=== PATIENT | female | born 1955 | race African-American/Black ===

== ENCOUNTER 2017-03-06 08:53 | Emergency (ER) | payer MEDICARE, OTHER ==
--- NOTE | ~2017-03-06 | CR181 ---
[facility] A Service of [facility] & [facility] RADIOLOGY TEXT RESULTS PATIENT: ANDREA VARGAS LOCATION: [facility] : 51 UNIT #: [id number] AGE: [address]: Ayden Maza DO SEX: F ORDER DR: [id number] [facility] [address] [place], [place] [address] [id number] E MR#: [id number] Acc #: [id number] NAME: ANDREA VARGAS : 1955 SEX: F STUDY DATE/TIME: 03/06/2017 11:50 UNIT: [facility] ROOM: STUDY DESCRIPTION: CR Lumbar Spine 2 or 3 Views Attending Physician: Ayden Maza D.O. Ordering Physician: Ayden Maza D.O. Primary Care Physician: Stewart Fabian M.D. MEDICAL IMAGING REPORT This report is preliminary unless electronic signature is present EXAM Lumbar spine 3 views INDICATION Low back pain after falling February 28. Correlated with CT of the abdomen and pelvis from same day. FINDINGS Vertebral body heights are maintained. Minimal grade 1 anterolisthesis of L4 on L5. Mild multilevel degenerative disc space narrowing. Lower lumbar spine facet arthropathy. Residual contrast in the renal collecting system and bladder. IMPRESSION No acute lumbar spine finding. Dictated by... Rory Berger M.D. THIS IS AN ELECTRONICALLY VERIFIED REPORT Rory Berger M.D. at 03/07/2017 7:29 AM DUDLEY/latisha TD: 03/06/2017 16:27 JOB #: [id number] MEDICAL IMAGING REPORT Page 1 of 1 COPY
--- NOTE | ~2017-03-06 | CR263 ---
[facility] A Service of [facility] & [facility] / [facility] RADIOLOGY TEXT RESULTS PATIENT: ANDREA VARGAS LOCATION: [facility] : 53 UNIT #: [id number] AGE: [address]: Ayden Maza DO SEX: F ORDER DR: [id number] [facility] [address] [place], [place] [address] [id number] E MR#: [id number] Acc #: [id number] NAME: ANDREA VARGAS : 1955 SEX: F STUDY DATE/TIME: 03/06/2017 11:59 UNIT: [facility] ROOM: STUDY DESCRIPTION: CR Toe 2 Views Great Rt Attending Physician: Ayden Maza D.O. Ordering Physician: Ayden Maza D.O. Primary Care Physician: Stewart Fabian M.D. MEDICAL IMAGING REPORT This report is preliminary unless electronic signature is present EXAM Right great toe 3 views INDICATIONS Great toe pain since February 27. COMPARISON STUDIES No comparisons. FINDINGS There is a comminuted nondisplaced fracture of the proximal phalanx of the great toe. No evidence for dislocation. IMPRESSION Comminuted nondisplaced fracture of the proximal phalanx of the great toe. Dictated by... Rory Berger M.D. THIS IS AN ELECTRONICALLY VERIFIED REPORT Rory Berger M.D. at 03/07/2017 7:29 AM DUDLEY/loy TD: 03/06/2017 16:33 JOB #: [id number] MEDICAL IMAGING REPORT Page 1 of 1 COPY
--- NOTE | ~2017-03-06 | CR63 ---
[facility] A Service of [facility] & [facility] RADIOLOGY TEXT RESULTS PATIENT: ANDREA VARGAS LOCATION: [facility] : 53 UNIT #: [id number] AGE: [address]: Ayden Maza DO SEX: F ORDER DR: [id number] [facility] [address] [place], [place] [address] [id number] E MR#: [id number] Acc #: [id number] NAME: ANDREA VARGAS : 1955 SEX: F STUDY DATE/TIME: 03/06/2017 11:49 UNIT: [facility] ROOM: STUDY DESCRIPTION: CR Chest 2 View Attending Physician: Ayden Maza D.O. Ordering Physician: Ayden Maza D.O. Primary Care Physician: Setwart Fabian M.D. MEDICAL IMAGING REPORT This report is preliminary unless electronic signature is present EXAM PA and lateral chest. INDICATION Left sided rib pain since February 28. COMPARISON No comparison studies are available. FINDINGS The lungs are well expanded. No airspace consolidation. Heart size normal. Atherosclerotic calcification of the aorta. Degenerative change thoracic spine. IMPRESSION No active disease. Dictated by... Rory Berger M.D. THIS IS AN ELECTRONICALLY VERIFIED REPORT Rory Berger M.D. at 03/07/2017 7:29 AM DUDLEY/charles TD: 03/06/2017 16:32 JOB #: [id number] MEDICAL IMAGING REPORT Page 1 of 1 COPY
--- NOTE | ~2017-03-06 | CT52 ---
[facility] A Service of [facility] RADIOLOGY TEXT RESULTS PATIENT: ANDREA VARGAS LOCATION: [facility] : 51 UNIT #: [id number] AGE: [address]: Ayden Maza DO SEX: F ORDER DR: [id number] [facility] [address] [place], [place] [address] [id number] E MR#: [id number] Acc #: [id number] NAME: ANDREA VARGAS : 1955 SEX: F STUDY DATE/TIME: 03/06/2017 UNIT: [facility] ROOM: STUDY DESCRIPTION: CT Cervical Spine Wo Cont Attending Physician: Ayden Maza D.O. Ordering Physician: Ayden Maza D.O. Primary Care Physician: Stewart Fabian M.D. MEDICAL IMAGING REPORT This report is preliminary unless electronic signature is present EXAM CT cervical spine without contrast 03/06/2017 1040 hours HISTORY Patient lost balance and fell on 03/01/2017, hitting head on table. Patient complains of headache and neck pain for 5 days. COMPARISON None. TECHNIQUE Thin-cut axial images were obtained from the skull base to the upper thoracic spine without contrast. Sagittal and coronal reconstructions were performed. Total exam DLP 284 mGy/cm. This CT exam was performed with one or more of the following radiation dose reduction techniques: automatic exposure control, adjustment of mA and/or kV according to patient size, and iterative reconstruction. FINDINGS Limited views through the posterior fossa are negative. The skull base and mastoid air cells are normal. C1-C2 articulation demonstrates some spurring around the dens. There is no fracture. C2-C3 is normal. C3-C4 demonstrates uncovertebral spurring and broad-based central disc bulging without significant central canal or foraminal stenosis. C4-C5 demonstrates disc height loss and uncovertebral spurring. There is no central canal or foraminal stenosis. [facility] A Service of [facility] RADIOLOGY TEXT RESULTS PATIENT: ANDREA VARGAS LOCATION: [facility] : 53 UNIT #: [id number] AGE: [address]: Adyen Maza DO SEX: F ORDER DR: C5-C6 demonstrates disc height loss, endplate spurring, uncovertebral spurring and broad-based disc bulging resulting in mild central canal stenosis but no fracture or subluxation. C6-C7 demonstrates disc height loss, central disc osteophyte complex without significant central canal or foraminal stenosis. C7-T1 is negative. IMPRESSION There is degenerative change, greatest at C5-C6 and C6-C7 with disc height loss, uncovertebral and endplate spurring. There is mild broad-based central disc bulge at C3-C4. There is no definite fracture or subluxation. Dictated by... Ángela Deluna M.D. THIS IS AN ELECTRONICALLY VERIFIED REPORT Ángela Deluna M.D. at 03/07/2017 9:29 AM DIOGENES/trinity TD: 03/06/2017 16:08 JOB #: [id number] MEDICAL IMAGING REPORT Page 1 of 1 COPY
--- NOTE | ~2017-03-06 | CT2 ---
[facility] A Service of [facility] & [facility] RADIOLOGY TEXT RESULTS PATIENT: ANDREA VARGAS LOCATION: [facility] : 51 UNIT #: [id number] AGE: [address]: Ayden Maza DO SEX: F ORDER DR: [id number] [facility] [address] [place], [place] [address] [id number] E MR#: [id number] Acc #: [id number] NAME: ANDREA VARGAS : 1955 SEX: F STUDY DATE/TIME: 03/06/2017 10:44 UNIT: [facility] ROOM: STUDY DESCRIPTION: CT Abd and Pelv W Cont Attending Physician: Ayden Maza D.O. Ordering Physician: Ayden Maza D.O. Primary Care Physician: Stewart Fabian M.D. MEDICAL IMAGING REPORT This report is preliminary unless electronic signature is present EXAM CT abdomen and pelvis with contrast, 03/06/2017, 1044 hours. CLINICAL HISTORY Patient lost balance and fell on 03/01/2017 with head and neck pain, diffuse body pain. Abdominal pain in the left side for [address] angiogram of the abdomen and pelvis, 12/09/2010. TECHNIQUE Dynamic helical CT images were obtained from the lung bases through the pubic symphysis with intravenous contrast only. Sagittal and coronal reconstructions were performed. Contrast was Isovue-370 100 mL IV. Total exam DLP 1092 mGy-cm. This CT exam was performed with one or more of the following radiation dose reduction techniques: automatic exposure control, adjustment of mA and/or kV according to patient size, and iterative reconstruction. FINDINGS Images through the lung bases are clear. There are no nodules or effusions. The esophagus is normal. Postcontrast images through the abdomen demonstrate a normal appearance to the liver, spleen, pancreas, and bile ducts. The gallbladder is absent. The adrenal glands are normal. The kidneys enhance normally. There is a tiny cyst in the lateral lower pole left kidney, unchanged. There are no renal or ureteral calculi. The abdominal aorta is normal in caliber. The unopacified stomach is contracted. There is no wall thickening seen. The small bowel is unremarkable. The terminal ileum and cecum are normal. The appendix is surgically absent. There is no colonic distension or STS. [facility] A Service of [facility] & [facility] RADIOLOGY TEXT RESULTS PATIENT: ANDREA VARGAS LOCATION: [facility] : 53 UNIT #: [id number] AGE: [address]: Ayden Maza DO SEX: F ORDER DR: colonic wall thickening. The CT pelvis demonstrates a normal appearance to the bladder. The uterus is surgically absent. There are pelvic phleboliths present. There is no hernia seen. Lumbar spine is unremarkable. IMPRESSION Negative CT scan of the abdomen and pelvis performed with intravenous contrast. Dictated by... Ángela Deluna M.D. THIS IS AN ELECTRONICALLY VERIFIED REPORT Ángela Deluna M.D. at 03/07/2017 9:29 AM DIOGENES/charles TD: 03/06/2017 15:53 JOB #: [id number] MEDICAL IMAGING REPORT Page 1 of 1 COPY
--- NOTE | ~2017-03-06 | CT71 ---
[facility] A Service [facility][1] RADIOLOGY TEXT RESULTS PATIENT: ANDREA VARGAS LOCATION: [facility] : 51 UNIT #: [id number] AGE: [address]: Ayden Maza DO SEX: F ORDER DR: [id number] [facility] [address] [place], [place] [address] [id number] E MR#: [id number] Acc #: [id number] NAME: ANDREA VARGAS : 1955 SEX: F STUDY DATE/TIME: 03/06/2017 10:42 UNIT: [facility] ROOM: STUDY DESCRIPTION: CT Head Wo Contrast Attending Physician: Ayden Maza D.O. Ordering Physician: Ayden Maza D.O. Primary Care Physician: Stewart Fabian M.D. MEDICAL IMAGING REPORT This report is preliminary unless electronic signature is present EXAM CT head without contrast, 03/06/2017. HISTORY 61-year-old female with headache, status post fall 03/01/2017, after hitting head on table. COMPARISON None TECHNIQUE Routine unenhanced axial images performed through the brain. This CT exam was performed with one or more of the following radiation dose reduction techniques: automatic exposure control, adjustment of mA and/or kV according to patient size, and iterative reconstruction. FINDINGS No hemorrhage, acute infarction, mass lesion, or abnormal extraaxial fluid collection. No midline shift or focal mass effect. Ventricular system is normal in size and configuration. Mild generalized atrophy. No acute bony abnormality. Visualized paranasal sinuses and mastoid air cells are clear. IMPRESSION 1. No acute intracranial abnormality. 2. Mild generalized age-related atrophy. Dictated by... Virgil Garnica M.D. [facility] A Service [facility][1] RADIOLOGY TEXT RESULTS PATIENT: ANDREA VARGAS LOCATION: [facility] : 51 UNIT #: [id number] AGE: [address]: Ayden Maza DO SEX: F ORDER DR: THIS IS AN ELECTRONICALLY VERIFIED REPORT Virgil Garnica M.D. at 03/08/2017 10:41 AM Celeste TD: 03/06/2017 16:11 JOB #: [id number] MEDICAL IMAGING REPORT Page 1 of 1 COPY
[~2017-03-06 08:53] MED LIST: AMITRYPTYLINE PO; HCTZ; HYDROCODONE; MULTIVITAMIN1 UDCAP PO; SYNTHROID; TOPROL XL
[2017-03-06 09:57] LABS: PARTIAL THROMBOPLASTIN TIME 26.9 SECONDS (23.5-31.3); PROTHROMBIN TIME (PATIENT) 10.4 SECONDS (10.0-11.7)
[2017-03-06 09:58] LABS: BASOPHIL% 0.7 % (0-2.5); EOSINOPHIL# 0.1 X10e3 (0-0.7); EOSINOPHIL% 1.7 % (0.0-7.0); HEMATOCRIT 44.9 % (35.0-45.0); HEMOGLOBIN 14.8 gm/dL (12.0-16.0); LYMPHOCYTE% 51.2 % (17.0-45.0); MEAN CORPUSCULAR HEMOGLOBIN 28.6 PG (28-34); MEAN CORPUSCULAR HGB CONC 32.9 g/dL (30-36); MEAN PLATELET VOLUME 10.3 FL (6.5-11.5); MONOCYTE# 0.4 X10e3 (0-1.0); NEUTROPHIL# 2.3 X10e3 (1.5-7.1); NEUTROPHIL% 39.4 % (40-75); RED BLOOD COUNT 5.16 X10e (3.90-5.30); RED CELL DISTRIBUTION WIDTH 14.9 % (11.0-15.5); WHITE BLOOD COUNT 5.9 X10e3 (4.0-10.5)
[2017-03-06 10:14] LABS: URINE SOURCE CLEAN CATCH
[2017-03-06 10:21] LABS: ALBUMIN SERUM 4.6 g/dL (3.5-5.0); BILIRUBIN, DIRECT 0.1 mg/dL (0.0-0.2); BILIRUBIN,INDIRECT 0.5 mg/dL (0.0-0.9); BILIRUBIN,TOTAL 0.6 mg/dL (0.2-2.0); BUN/CREATININE RATIO 18.88; CALCIUM SERUM 9.7 mg/dL (8.4-10.2); CREATININE SERUM 0.9 mg/dL (0.6-1.4); GLOM FILT RATE Estimated 78.9 mL/min (>60); PROTEIN TOTAL SERUM 8.5 g/dL (6.0-8.3)
[2017-03-06 10:22] LABS: URINE APPEARANCE CLEAR; URINE BILIRUBIN NEG (NEG); URINE BLOOD NEG (NEG); URINE COLOR YELLOW; URINE GLUCOSE NEG (NEG); URINE KETONE NEG (NEG); URINE LEUKOCYTE ESTERASE NEG (NEG); URINE NITRATE NEG (NEG); URINE PH 5.5 (5-8); URINE PROTEIN NEG (NEG); URINE SPECIFIC GRAVITY 1.009 (1.003-1.035); URINE UROBILINOGEN 0.2 MG/DL (NEG)
[2017-03-06 10:34] LABS: CULTURE INDICATED? NO
[2017-03-06 11:41] LABS: DIFF IND YES; PLATELET COUNT 167 X10e3 (140-420)
[2017-03-06 11:55] LABS: PLATELET ESTIMATE NORMAL (NORMAL)
[2017-03-06 11:56] LABS: ANISOCYTOSIS SL
== END 2017-03-06 13:38 | disposition home or self-care (01) ==
LOC: CED 08:53
PROVIDERS: Emergency Medicine
DX: S09.90XA Unspecified injury of head, initial encounter (principal); S92.414A Nondisplaced fracture of proximal phalanx of right great toe, initial encounter for closed fracture; R10.9 Unspecified abdominal pain; I10 Essential (primary) hypertension; W01.190A Fall on same level from slipping, tripping and stumbling with subsequent striking against furniture, initial encounter
CPT/HCPCS: 29405; 36415; 70450; 71020; 72100; 72125; 73660; 74177; 80048; 80076; 81003; 83690; 85025; 85610; 85730; 99284; J2930; Q9967

== ENCOUNTER → 2017-03-09 | Outpatient (CLI) | payer MEDICARE, OTHER ==
--- NOTE | ~2017-03-09 | MY29 ---
[facility] A Service of [facility] RADIOLOGY TEXT RESULTS PATIENT: ANDREA VARGAS LOCATION: [facility] : 53 UNIT #: [id number] AGE: [address]: Stewart Fabian MD SEX: F ORDER DR: [id number] [place] [id number] [facility] [place], [place] [address] [id number] O MR#: [id number] Acc #: [id number] NAME: ANDREA VARGAS : 1955 SEX: F STUDY DATE/TIME: 03/09/2017 12:59 UNIT: [facility] ROOM: STUDY DESCRIPTION: MY ALYSSA SCREENING W/ CAD BILAT Attending Physician: Stewart Fabian M.D. Ordering Physician: Stewart Fabian M.D. Primary Care Physician: Stewart Fabian M.D. MEDICAL IMAGING REPORT This report is preliminary unless electronic signature is present EXAM Bilateral digital screening mammogram with CAD, 03/09/2017 INDICATION 61-year-old female for routine screening. No reported problems and no personal or family history of breast cancer. No surgeries. TECHNIQUE CC and MLO views of the breasts were obtained and reviewed with an FDA-approved CAD device. COMPARISON 12/07/2015, 11/04/2014, 08/09/2013 FINDINGS Breast parenchyma is composed of scattered fibroglandular densities. The pattern is unchanged. There is no new dominant nodule, mass or suspicious cluster of microcalcifications. Faint nodularity in the breasts is stable. There are benign calcifications on the left. IMPRESSION Benign screening mammogram. One year followup recommended. Patients over the age of 40 are entered into a reminder system with target due date for the next mammogram. A result letter will also be sent to the patient. BIRADS: 2 Benign Finding Dictated by... Christian Gibbs M.D. THIS IS AN ELECTRONICALLY VERIFIED REPORT [facility] A Service of [facility] RADIOLOGY TEXT RESULTS PATIENT: ANDREA VARGAS LOCATION: [facility] : 53 UNIT #: [id number] AGE: [address]: Stewart Fabian MD SEX: F ORDER DR: Christian Gibbs M.D. at 03/09/2017 4:02 PM PANCHITO/latisha TD: 03/09/2017 15:50 JOB #: [id number] MEDICAL IMAGING REPORT Page 1 of 1 COPY
== END | disposition home or self-care (01) ==
LOC: CWCC 12:07
DX: Z12.31 Encounter for screening mammogram for malignant neoplasm of breast (principal)
CPT/HCPCS: G0202